=== PATIENT | female | born 1990 | race Caucasian/White ===

== ENCOUNTER 2016-12-13 22:56 | Emergency (ER) | payer BC ==
[2016-12-13] MEDS ORDERED: NORMAL SALINE 2,000 ML IV ONE (23:51)
[2016-12-13] MEDS ORDERED: ONDANSETRON HCL 4 MG/2 ML VIAL ONE (23:51)
--- NOTE | 2016-12-14 00:49 | ER PHYSICIAN DOCUMENTATION ---
Physician Documentation [facility] Name:Peyton Orozco Age:26 yrs Sex:Female :1990 Arrival Date:12/13/2016 Time:22:56 Bed1 Private MD:Physician, No ED Rigo Jhaveri Disposition: 12/14/16 00:36 Discharged to Home/Self Care. Impression: Vomiting - Diarrhea, Dehydration. - Condition is Good. - Discharge Instructions: DEHYDRATION (6y-Adult), DIARRHEA VOMIT Viral 6yAdult - GASTROENTERITIS, Viral [6y-Adult]. - Prescriptions for Zofran 4 mg Oral Tablet - take 1-2 tablet by ORAL route every 4-6 hours As needed; 10 tablet. - Medical Reconciliation form form. - Follow up: Private Physician; When: 4- 6 days; Reason: Recheck today's complaints, Continuance of care. - Problem is new. - Symptoms have improved. HPI: 12/13 23:05 This 26 yrs old Female presents to ER via Walk In with complaints of tl1 Nausea/Vomiting AND diarrhea. 23:05 The patient presents to the emergency department with nausea, with vomiting, with tl1 diarrhea. Historical: - Allergies: No known drug Allergies; - Tetanus: < 10 years. - Ebola Screening: : Patient negative for fever greater than or equal to 101.5 degrees Fahrenheit, and additional compatible Ebola Virus Disease symptoms. Patient denies exposure to infectious person. Patient denies travel to an Ebola-affected area in the 21 days before illness onset. No symptoms or risks identified at this time. . - Immunization history: Flu Vaccine None. - Social history: Smoking status: Patient states was never smoker of tobacco. Vital Signs: 23:00 BP 140 / 78; Pulse 78; Resp 18; Temp 98; Pulse Ox 92% on R/A; Weight 108.86 kg; Height bw2 5 ft. 4 in. (162.56 cm); Pain 3/10; 12/14 00:47 BP 147 / 66; Pulse 74; Resp 18; Pulse Ox 97% ; bw2 12/13 23:00 Body Mass Index 41.20 (108.86 kg, 162.56 cm) bw2 MDM: 12/13 23:05 Patient medically screened. tl1 Dispensed Medications: 23:35 CANCELLED (Patient Refused): immodium 2 mg PO once bw2 23:40 Drug: NS 0.9% 2000 ml; Route: IV; Rate: bolus; Site: right antecubital; 12/14 00:47 Follow up: IV Status: Completed infusion 12/13 23:40 Drug: Zofran 4 mg; Route: IVP; Infused Over: 2 mins; Site: right antecubital; 12/14 00:47 Follow up: Response: No adverse reaction 2 Point of Care Testing: Urine Dip: 12/13 23:33 pH: 5.0; ; Specific [place]: 1.010; Ketones: Negative; Glucose: Negative; Protein: bw2 Negative; Leukocytes: Negative; Nitrite: Negative ; Blood: Non Hemolyzed Trace; Bilirubin: Negative ; Urobilinogen: Normal Signatures: Rigo De La Rosa MD MD tl1 Leyda King bw2
--- NOTE | 2016-12-14 00:49 | ER NURSING DOCUMENTATION ---
Nurse's Notes [facility] Name:Peyton Orozco Age:26 yrs Sex:Female :1990 Arrival Date:12/13/2016 Time:22:56 Bed1 Private MD:Gabriela Morales Diagnosis:Vomiting - Diarrhea;Dehydration Presentation: 12/13 22:58 Presenting complaint: Patient states: she has been V/D a few times each day for the bw2 last 4 days. pt denies fever. pt states she has left sided flank pain that is mild. Transition of care: patient was not received from another setting of care. 22:58 Acuity: SCAR 3 bw2 22:58 Method Of Arrival: Walk In 2 Triage Assessment: 23:00 General: Appears in no apparent distress, comfortable, well groomed, Behavior is bw2 appropriate for age. Pain: Complains of pain in left flank pain. GI: Reports diarrhea, vomiting. Historical: - Allergies: No known drug Allergies; - Tetanus: < 10 years. - Ebola Screening: : Patient negative for fever greater than or equal to 101.5 degrees Fahrenheit, and additional compatible Ebola Virus Disease symptoms. Patient denies exposure to infectious person. Patient denies travel to an Ebola-affected area in the 21 days before illness onset. No symptoms or risks identified at this time. . - Immunization history: Flu Vaccine None. - Social history: Smoking status: Patient states was never smoker of tobacco. Screenin:01 Infectious Disease Risk None. Abuse screen: Denies threats or abuse. Nutritional bw2 screening: No deficits noted. Assessment: 23:01 See Triage Assessment done by same RN. GI: Abdomen is obese. bw2 Vital Signs: 23:00 BP 140 / 78; Pulse 78; Resp 18; Temp 98; Pulse Ox 92% on R/A; Weight 108.86 kg; Height bw2 5 ft. 4 in. (162.56 cm); Pain 3/10; 12/14 00:47 BP 147 / 66; Pulse 74; Resp 18; Pulse Ox 97% ; bw2 12/13 23:00 Body Mass Index 41.20 (108.86 kg, 162.56 cm) bw2 ED Course: 12/13 22:57 Patient arrived in ED. em2 22:57 Physician, Gabriela is Private Physician. em2 22:58 Leyda King is Primary Nurse. bw2 22:59 Triage completed. bw2 23:01 Valuables Remains with patient Bed in low position. bw2 23:13 Rigo De La Rosa MD is Attending Physician. tl1 23:40 Inserted peripheral IV: 20 gauge in right antecubital area and blood collected. bw2 Administered Medications: 23:35 CANCELLED (Patient Refused): immodium 2 mg PO once bw2 23:40 Drug: NS 0.9% 2000 ml; Route: IV; Rate: bolus; Site: right antecubital; 2 12/14 00:47 Follow up: IV Status: Completed infusion bw2 12/13 23:40 Drug: Zofran 4 mg; Route: IVP; Infused Over: 2 mins; Site: right antecubital; 2 12/14 00:47 Follow up: Response: No adverse reaction bw2 Point of Care Testing: Urine Dip: 12/13 23:33 pH: 5.0; ; Specific [place]: 1.010; Ketones: Negative; Glucose: Negative; Protein: bw2 Negative; Leukocytes: Negative; Nitrite: Negative ; Blood: Non Hemolyzed Trace; Bilirubin: Negative ; Urobilinogen: Normal Outcome: 12/14 00:36 Discharge ordered by . tl1 00:47 Discharged to home ambulatory, with family. bw2 00:47 Condition: good 00:47 Discharge Assessment: Patient awake, alert and oriented x 3. No cognitive and/or functional deficits noted. Patient verbalized understanding of disposition instructions. 00:47 Discharge instructions given to patient, Instructed on discharge instructions, follow up and referral plans. medication usage, Demonstrated understanding of instructions, medications, Prescriptions given X 1. 00:48 Patient left the ED. bw2 15:14 Discharge F/U Call: Unable to reach: no answer st Signatures: Meenu Burris RN RN st Yunior-urszula, [place] em2 Rigo De La Rosa MD MD tl1 Wisely, Beth [facility]
== END 2016-12-14 00:49 | disposition home or self-care (01) ==
LOC: ER 22:56
DX: E86.0 Dehydration (principal); R11.2 Nausea with vomiting, unspecified; R19.7 Diarrhea, unspecified
CPT/HCPCS: 96361; 96374; 99284; J2405; J7030